=== PATIENT | female | born 1930 | race Caucasian/White ===

== ENCOUNTER 2020-07-22 20:18 | Emergency (ER) | payer OTHER ==
[2020-07-22 21:00] LABS: BASOPHIL 0.6 % (0-2); EOSINOPHIL 0.8 % (0-7); HCT 34.2 % (37.0-47.0); HGB 9.6 g/dl (12.5-16.0); LYMPHOCYTE 11.5 % (15-48); MCH 19.3 pg (25.0-31.0); MCHC 28.1 g/dL (32.0-36.0); MCV 68.7 fL (78.0-100.0); MONOCYTE 5.8 % (0-12); MPV 8.9 fL (6.0-9.5); NRBC 0; PLT 357 K/uL (150-400); RBC 4.98 M/uL (4.20-5.40); RDW 19.1 % (11.5-14.0); WBC 6.2 K/uL (4.0-10.5)
[2020-07-22 21:11] LABS: INR 1.14 (0.9-1.2); PROTHROMBIN TIME 13.9 SECONDS (11.4-13.6); PTT 28.9 SECONDS (22.2-34.7)
[2020-07-22 21:17] LABS: ALBUMIN 3.6 g/dL (3.4-5.0); BUN/CREAT RATIO (CALC) 29.2 RATIO; CREATININE 0.65 mg/dL (0.51-0.95); GLOBULIN (CALCULATION) 3.4 g/dL; POTASSIUM 4.7 mmol/L (3.5-5.1)
[2020-07-22 22:03] LABS: BILIRUBIN NEGATIVE (NEGATIVE); BLOOD NEGATIVE Ery/uL (NEGATIVE); CLARITY CLEAR (CLEAR); COLOR YELLOW (YELLOW); GLUCOSE (U) 3+ mg/dL (NORMAL); LEUKOCYTES NEGATIVE Leu/uL (NEGATIVE); NITRITE NEGATIVE (NEGATIVE); PROTEIN NEGATIVE (NEGATIVE); UROBILINOGEN 0.2 mg/dL (0.2-1.0)
== END 2020-07-22 22:15 | disposition home or self-care (01) ==
LOC: FER 20:18
PROVIDERS: Emergency Medicine
DX: H81.10 Benign paroxysmal vertigo, unspecified ear (principal); I48.20 Chronic atrial fibrillation, unspecified; I10 Essential (primary) hypertension; E07.9 Disorder of thyroid, unspecified; Z79.01 Long term (current) use of anticoagulants; Z79.82 Long term (current) use of aspirin; Z79.899 Other long term (current) drug therapy
CPT/HCPCS: 36415; 70450; 71250; 80053; 81003; 84484; 85025; 85610; 85730; 87088; 93005